=== PATIENT | female | born 1960 ===

== ENCOUNTER 2025-05-08 10:46 | Day surgery (SDC) | payer MEDICARE, BC ==
[2025-05-07 09:33] VITALS: BMI 21.9
[2025-05-08 12:32] LABS: #Basophils Less than 0.03 10x3/uL (0.0-0.2); #Eosinophils 0.10 10x3/uL (0.0-0.7); #Monocytes 0.40 10x3/uL (0.11-0.59); #Neutrophils 3.35 10x3/uL (1.40-6.50); %Basophils 0.4 % (0.0-1.0); %Eosinophils 1.8 % (0.0-10.0); %Lymphocytes 31.1 % (21.0-51.0); %Monocytes 7.1 % (0.0-10.0); %Neutrophils 59.4 % (42.0-75.0); Hematocrit 38.0 % (36.0-47.0); Hemoglobin 11.9 g/dL (12.0-16.0); Mean Corpuscular Hemoglobin 26.4 pg (27.0-31.0); Mean Corpuscular Volume 84.3 fL (78.0-98.0); Platelet Count 205 10x3/uL (130-400); Red Blood Cell (RBC) Count 4.51 mill/uL (4.20-5.40); White Blood Cell (WBC) Count 5.63 10x3/uL (4.8-10.8)
[2025-05-08 12:52] LABS: INR-International Normal Ratio 1.0; Prothrombin Time 13.5 sec (12.0-14.7)
[2025-05-08 12:53] LABS: PTT 29.7 sec (22.9-36.1)
[2025-05-08] MEDS ORDERED: Lidocaine 1% (PF) 30 ML VIAL ONE (13:45)
[2025-05-08] MEDS ORDERED: CEFAZOLIN 2 GM VIAL ONE (13:54)
[2025-05-08] MEDS ORDERED: PROPOFOL 40 ML ONE (14:02)
== END 2025-05-08 16:01 | disposition home or self-care (01) ==
LOC: SDC 10:46
PROVIDERS: ATTEND Neurological Surgery
PROC: 01N50ZZ Release Median Nerve, Open Approach (ICD-10-PCS; principal; 2025-05-08)
DX: G56.02 Carpal tunnel syndrome, left upper limb (principal); M47.812 Spondylosis without myelopathy or radiculopathy, cervical region; I10 Essential (primary) hypertension; F41.9 Anxiety disorder, unspecified; Z79.899 Other long term (current) drug therapy; Z98.890 Other specified postprocedural states
CPT/HCPCS: 64721; 85025; 85610; 85730; J1100; J2250; J2704; J3373